=== PATIENT | male | born 1990 | race Two or more races ===

== ENCOUNTER 2025-02-03 10:17 | Emergency (ER) | payer OTHER ==
[~2025-02-03] VITALS: Ht 175.3 cm; Wt 88.9 kg
[2025-02-03] MEDS ORDERED: KETOROLAC TROMETHAMINE 15 MG/ML VIAL ONE (11:12)
[2025-02-03] MEDS ORDERED: dexaMETHasone SOD PHOSPHATE 0 ML ONE (11:12)
[2025-02-03] MEDS ORDERED: LIDOCAINE 5% (PATCH) 1 EA PATCH TP ONE (11:12)
[2025-02-03] MEDS ORDERED: CYCLOBENZAPRINE 10 MG TABLET ONE (11:12)
[2025-02-03] MEDS: dexaMETHasone SOD PHOSPHATE 10 MG/ML VIAL IM ONE (11:16)
[2025-02-03] MEDS: CYCLOBENZAPRINE 10 MG TABLET PO ONE (11:17)
[2025-02-03] MEDS: KETOROLAC TROMETHAMINE 15 MG/ML VIAL IM ONE (11:17)
[2025-02-03] MEDS: LIDOCAINE 5% (PATCH) 1 EA PATCH TP STA (11:17)
[2025-02-03] MEDS ORDERED: CYCL5TAB PO (11:24)
[2025-02-03] MEDS ORDERED: IBUP-1955 PO (11:24)
[2025-02-03] MEDS ORDERED: LIDO30AD10 TP (11:24)
[2025-02-03] MEDS ORDERED: METH4TAB3 PO (11:24)
[2025-02-03 11:30] VITALS: BP 122/84; TEMP 98; O2SAT 98
== END 2025-02-03 11:30 ==
LOC: ER 10:20
DX: G89.29 Other chronic pain (principal); M54.50 Low back pain, unspecified; Z02.89 Encounter for other administrative examinations
CPT/HCPCS: J1100; J1885